=== PATIENT | female | born 1995 | race Caucasian/White ===

== ENCOUNTER 2017-01-20 14:54 | Emergency (ER) | payer BC ==
--- NOTE | 2017-01-20 17:00 | UC ---
Complaint Female HPI - HPI Summary HPI Summary: Pt dx here with UTI 11/22/16 [culture grew e coli]. Clark like symptoms did not entirely go away, saw PCP 11/30/16 and was given new round of abx. Was told subsequently by PCP that secondary culture did not grow bacteria. Still having mild dysuria, especially in the am, and occasional "random" back pain. Pt has lupus and had recurrent UTIs ages [age]. Pt has boyfriend in the army who has been gone since Oct; no current sexual activity. - History Of Current Complaint Stated Complaint: URINARY COMPLAINT Time Seen by Provider: 01/20/17 16:47 Hx Obtained From: Patient ?: No Onset/Duration: Gradual Onset, Lasting Weeks Timing: Constant Severity Initially: Mild Severity Currently: Mild Character: Burning Aggravating Factor(s): Urination Related Hx: Similar Episode/Dx as: - UTI - Allergies/Home Medications Allergies/Adverse Reactions: Allergies Allergy/AdvReac Type Severity Reaction Status Date / Time Hydroxychloroquine Allergy Intermediate BUMPY SKIN Verified 01/20/17 17:04 [From Plaquenil] OF LEGS Sulfamethoxazole Allergy "Stabbing Verified 01/20/17 17:04 w/Trimethoprim pain in my [From Bactrim] throat" Home Medications: Home Medications Folic Acid TAB* [Folvite TAB*] 1 mg PO DAILY 01/20/17 [History Confirmed ] PMH/Surg Hx/FS Hx/Imm Hx Previously Healthy: No - lupus Endocrine History Of: Reports: Thyroid Disease - Hypothyroidism Cardiovascular History Of: Reports: Cardiac Disorders - POTS - Surgical History Surgical History: Yes Surgery Procedure, Year, and Place: ear tubes x 2 - Family History Known Family History: Positive: Other - no family history of blood disorders Negative: Cardiac Disease, Hypertension - Social History Alcohol Use: None Substance Use Type: None Smoking Status (MU): Never Smoked Tobacco - Immunization History Vaccination Up to Date: Yes Review of Systems Constitutional: Negative Skin: Negative Eyes: Negative ENT: Negative Respiratory: Negative Cardiovascular: Negative Gastrointestinal: Negative Genitourinary: Dysuria Motor: Negative Neurovascular: Negative Musculoskeletal: Negative Neurological: Negative Psychological: Negative All Other Systems Reviewed And Are Negative: Yes Physical Exam Triage Information Reviewed: Yes Appearance: Well-Appearing, No Pain Distress, Thin Vital Signs Reviewed: Yes Eye Exam: Normal Eyes: Positive: Conjunctiva Clear ENT Exam: Normal ENT: Positive: Normal ENT inspection, Hearing grossly normal, Pharynx normal, TMs normal Neck exam: Normal Respiratory Exam: Normal Respiratory: Positive: Chest non-tender, Lungs clear, Normal breath sounds, No respiratory distress, No accessory muscle use Cardiovascular Exam: Normal Cardiovascular: Positive: RRR, No Murmur Abdomen Description: Positive: Nontender, Soft. Negative: CVA Tenderness (R), CVA Tenderness (L) Musculoskeletal Exam: Normal Neurological Exam: Normal Psychological Exam: Normal Skin Exam: Normal Complaint Female Dx - Differential Dx/Diagnosis Provider Diagnoses: dysuria Discharge - Discharge Plan Condition: Stable Disposition: HOME Patient Education Materials: Dysuria (ED) Referrals: Monica Kruse MD [Primary Care Provider] - 2 Weeks Additional Instructions: I am not treating you for a UTI today; your continued dysuria may be from your medications or may be a sign of another problem. We will call you if any testing reveals an infection.
[2017-01-20 17:38] VITALS: BP 93/48
== END 2017-01-20 17:38 | disposition home or self-care (01) ==
LOC: UCCORT 14:54
DX: R30.0 Dysuria (principal); Z87.440 Personal history of urinary (tract) infections; M32.9 Systemic lupus erythematosus, unspecified; Z88.2 Allergy status to sulfonamides; Z88.8 Allergy status to other drugs, medicaments and biological substances
CPT/HCPCS: 87086; 87491; 87591; 99211; G0463

== ENCOUNTER 2019-05-24 13:52 | Emergency (ER) | payer BC ==
[2019-05-24 15:41] VITALS: BP 102/46
--- NOTE | 2019-05-24 15:44 | UC ---
UC General HPI - HPI Summary HPI Summary: 2 day hx of burning with urination and frequency. no fever, abdominal pain, vaginal discharge or flank pain. hx uti's and this feels the same. - History of Current Complaint Stated Complaint: URINARY Time Seen by Provider: 05/24/19 15:36 Hx Obtained From: Patient Hx Last Menstrual Period: 12/23/16 Onset/Duration: Gradual Onset Timing: Constant Associated Signs & Symptoms: Positive: Dysuria - Allergy/Home Medications Allergies/Adverse Reactions: Allergies Allergy/AdvReac Type Severity Reaction Status Date / Time hydroxychloroquine Allergy See Comment Verified 05/24/19 15:52 [From Plaquenil] sulfamethoxazole Allergy See Comment Verified 05/24/19 15:50 [From Bactrim] trimethoprim [From Bactrim] Allergy See Comment Verified 05/24/19 15:50 PMH/Surg Hx/FS Hx/Imm Hx - Additional Past Medical History Additional PMH: Positional orthostatic hypotension Endocrine History: Thyroid Disease - Surgical History Surgical History: Yes Surgery Procedure, Year, and Place: ear tubes x 2 - Family History Known Family History: Positive: Other - no family history of blood disorders Negative: Cardiac Disease, Hypertension - Social History Alcohol Use: None Substance Use Type: None Smoking Status (MU): Never Smoked Tobacco - Immunization History Vaccination Up to Date: Yes Review of Systems All Other Systems Reviewed And Are Negative: Yes Constitutional: Negative: Fever, Chills Gastrointestinal: Negative: Abdominal Pain Genitourinary: Positive: Dysuria, Hematuria - since this am, Frequency, Urgency. Negative: Vaginal/Penile Discharge Physical Exam Triage Information Reviewed: Yes Appearance: Well-Appearing Vital Signs Reviewed: Yes Eyes: Positive: Conjunctiva Clear Neck: Positive: Supple Respiratory: Positive: Lungs clear Cardiovascular: Positive: RRR Abdomen Description: Positive: Nontender, No Organomegaly, Soft. Negative: CVA Tenderness (R), CVA Tenderness (L) Bowel Sounds: Positive: Present Neurological: Positive: Alert Psychological: Positive: Age Appropriate Behavior Skin Exam: Normal Diagnostics - Laboratory Lab Results: u/a=leukocytes and blood with a culture pending. Course/Dx - Differential Dx - Multi-Symptom Differential Diagnoses: Other - NON TOXIC. NO ACUTE ABDOMEN. S/S'S C/W PRIOR UTI 'S. - Diagnoses Provider Diagnosis: Dysuria Discharge - Sign-Out/Discharge Documenting (check all that apply): Patient Departure All imaging exams completed and their final reports reviewed: No Studies - Discharge Plan Condition: Stable Disposition: HOME Prescriptions: Nitrofurantoin Monohyd/M-Cryst [Macrobid 100 mg Capsule] 100 mg PO BID 5 Days # 10 cap Patient Education Materials: Dysuria (ED) Additional Instructions: FOLLOW UP WITH YOUR MANAGER CREDIT COLLECTIONS IN [place] IF NOT BETTER IN 5 DAYS OR SOONER IF WORSE. - Billing Disposition and Condition Condition: STABLE Disposition: Home
--- NOTE | 2019-05-27 14:21 | UC ---
- Progress Note Progress Note: pt called to advise she felt worse up until yesterday with some nausea and vomiting. Today, she started to improve but now has some low back pain. she called her [employer] who suggested she f/u on the culture of her urine to determine the "organism". she denies fever but states "I had pyelonephritis as a child" culture result d/w pt. pt is currently in [place] visiting a friend. I advised she to go to a medical facility there to ensure that she does not have a pyelonephritis. I advised she will need an antibiotic change based on her s/s's plus culture result and that Cipro would be effective. Course/Dx - Diagnoses Provider Diagnoses: Dysuria Discharge - Sign-Out/Discharge Documenting (check all that apply): Patient Departure All imaging exams completed and their final reports reviewed: No Studies - Discharge Plan Condition: Stable Disposition: HOME Prescriptions: Nitrofurantoin Monohyd/M-Cryst [Macrobid 100 mg Capsule] 100 mg PO BID 5 Days # 10 cap Patient Education Materials: Dysuria (ED) Referrals: No Primary Care Phys,NOPCP [Primary Care Provider] - Additional Instructions: FOLLOW UP WITH YOUR COMPANY [employer] IN [place] IF NOT BETTER IN 5 DAYS OR SOONER IF WORSE. - Billing Disposition and Condition Condition: STABLE Disposition: Home
== END 2019-05-24 16:06 | disposition home or self-care (01) ==
LOC: UCCORT 13:52
DX: R30.0 Dysuria (principal); B96.20 Unspecified Escherichia coli [E. coli] as the cause of diseases classified elsewhere; Z88.1 Allergy status to other antibiotic agents
CPT/HCPCS: 81003; 87077; 87086; 87186; 99212; G0463